=== PATIENT | female | born 1965 | race Caucasian/White ===

== ENCOUNTER 2016-08-19 21:25 | Emergency (ER) | payer BC, OTHER ==
[~2016-08-19] VITALS: Ht 152.4 cm; Wt 59.1 kg
[~2016-08-19 21:25] MED LIST: AMOXICILLIN 50500 MG; ATARAX 10MG10 MG/TAB; ATARAX 10MG10 MG/TAB PO; CEPHALEXIN250 MG/5 M PO; CEPHALEXIN500 M1 PO; ISOPTIN SR120 MG PO; NEXIUM 40MG40 MG PO; NORCO 325 MG-51 TAB PO; PREMARIN .3MG0.3 MG PO; PREMARIN 0.60.625 M1 PO; PREVACID30 MG PO; PROTONIX 40MG T40 MG PO; TOPROL XL 25MG25 MG PO; VERAPAMIL; VERAPAMIL120 MG/TA1 PO; VERAPAMIL180 MG/TAB PO; ZOLOFT 25MG25 MG
[2016-08-19 21:26] VITALS: TEMP 98.1
[2016-08-19] MEDS ORDERED: ZOLOFT 50MG50 MG PO (21:38)
[2016-08-19 21:54] LABS: BASO % 0.6 % (0.0-2.0); EOS % 0.6 % (0-4.0); GRAN # 4.8 (1.4-6.5); GRAN % 69.4 % (42.2-75.2); HEMATOCRIT 38.8 % (37.0-47.0); HEMOGLOBIN 12.9 g/dl (12.5-16.0); LYMPH # 1.8 (1.2-3.4); LYMPH % 25.1 % (20.0-51.0); MEAN CELL VOLUME 90 fl (80.0-100.0); MEAN CORPUSCULAR HEMOGLOBIN 30 pg (27.0-31.0); MEAN CORPUSCULAR HGB CONC 33 g/dl (33.0-37.0); MEAN PLATELET VOLUME 9.8 fl (7.4-10.4); MONO # 0.3 (0.1-0.6); PLATELET COUNT 277 K/mm3 (130-400); RED BLOOD COUNT 4.33 M/mm3 (4.10-5.30); REDCELL DISTRIBUTION WIDTH-CV 13.2 % (11.5-14.5)
[2016-08-19 21:58] LABS: PROTHROMBIN TIME 11.4 SECONDS (9.7-12.8)
[2016-08-19 22:01] LABS: PARTIAL THROMBOPLASTIN TIME 30.2 SECONDS (26.0-37.0)
[2016-08-19 22:06] LABS: ADJUSTED CALCIUM 9.4 mg/dL (8.4-10.2); ALANINE AMINOTRANSFERASE 31 U/L (9-52); ALBUMIN 4.5 gm/dL (3.5-5.0); ALKALINE PHOSPHATASE 63 U/L (50-136); ANION GAP 13 mmol/L (7-16); BILIRUBIN,TOTAL 0.5 mg/dL (0.0-1.0); BLOOD UREA NITROGEN 16 mg/dL (7-17); CALCIUM 9.8 mg/dL (8.4-10.2); CARBON DIOXIDE 29 mmol/L (22-30); CHLORIDE 100 mmol/L (98-107); CREATININE, serum 0.72 mg/dL (0.52-1.25); GLUCOSE 102 mg/dL (74-106); POTASSIUM 4.1 mmol/L (3.4-5.0); SODIUM 142 mmol/L (137-145)
[2016-08-19 22:35] LABS: TROPONIN-I < 0.012 ng/mL (0.000-0.034)
[2016-08-19 22:51] VITALS: BP 125/72; PULSE 70
== END 2016-08-19 22:53 | disposition home or self-care (01) ==
LOC: COL.ER 21:25
PROVIDERS: Family Medicine
DX: R07.9 Chest pain, unspecified (principal)

== ENCOUNTER → 2020-05-10 | Outpatient (CLI) | payer SELFPAY ==
[~2020-05-10] MED LIST changes: +LIPITOR 10MG10 MG PO; +ZOLOFT 50MG50 MG PO
== END ==
LOC: ZCOL.LAB 21:10
DX: U07.1 COVID-19 (principal)

== ENCOUNTER 2020-07-07 02:54 | Emergency (ER) | payer SELFPAY ==
[~2020-07-07] VITALS: Ht 152.4 cm; Wt 72.7 kg
[2020-07-07 03:32] LABS: BASO % 0.6 % (0.0-2.0); EOS # 0.1 (0.0-0.7); EOS % 1.3 % (0-4.0); GRAN # 4.2 (1.4-6.5); GRAN % 60.4 % (42.2-75.2); HEMATOCRIT 39.1 % (37.0-47.0); HEMOGLOBIN 12.9 g/dl (12.5-16.0); LYMPH # 2.2 (1.2-3.4); LYMPH % 32.1 % (20.0-51.0); MEAN CELL VOLUME 87 fl (80.0-100.0); MEAN CORPUSCULAR HEMOGLOBIN 29 pg (27.0-31.0); MEAN CORPUSCULAR HGB CONC 33 g/dl (33.0-37.0); MEAN PLATELET VOLUME 10.2 fl (7.4-10.4); MONO # 0.4 (0.1-0.6); MONO % 5.5 % (1.7-9.3); PLATELET COUNT 273 K/mm3 (130-400); RED BLOOD COUNT 4.48 M/mm3 (4.10-5.30); REDCELL DISTRIBUTION WIDTH-CV 13.7 % (11.5-14.5)
[2020-07-07 03:37] LABS: ALBUMIN 4.4 gm/dL (3.5-5.0); BILIRUBIN,TOTAL 0.5 mg/dL (0.0-1.0); CALCIUM 9.8 mg/dL (8.4-10.2); CREATININE, serum 0.82 (0.52-1.25); MAGNESIUM 1.9 mg/dL (1.6-2.3); POTASSIUM 4.2 mmol/L (3.4-5.0); TOTAL PROTEIN 7.5 gm/dL (6.4-8.2)
[2020-07-07 04:07] LABS: THYROID STIMULATING HORMONE 4.56 uIU/mL (0.465-4.680)
[2020-07-07 04:30] VITALS: BP 125/64; PULSE 74
== END 2020-07-07 04:30 | disposition home or self-care (01) ==
LOC: COL.ER 02:54
PROVIDERS: Emergency Medicine
DX: R00.2 Palpitations (principal); F41.9 Anxiety disorder, unspecified; Z90.710 Acquired absence of both cervix and uterus; Z90.49 Acquired absence of other specified parts of digestive tract

== ENCOUNTER 2020-08-17 06:06 | Emergency (ER) | payer SELFPAY ==
[~2020-08-17] VITALS: Ht 152.4 cm; Wt 72.7 kg
[2020-08-17 06:09] VITALS: TEMP 97.4
[2020-08-17 06:43] LABS: BASO % 0.5 % (0.0-2.0); EOS # 0.1 (0.0-0.7); EOS % 1.4 % (0-4.0); GRAN # 3.9 (1.4-6.5); GRAN % 60.5 % (42.2-75.2); HEMATOCRIT 36.7 % (37.0-47.0); HEMOGLOBIN 12.2 g/dl (12.5-16.0); MEAN CELL VOLUME 88 fl (80.0-100.0); MEAN CORPUSCULAR HEMOGLOBIN 29 pg (27.0-31.0); MEAN CORPUSCULAR HGB CONC 33 g/dl (33.0-37.0); MEAN PLATELET VOLUME 10.1 fl (7.4-10.4); MONO # 0.4 (0.1-0.6); MONO % 6.4 % (1.7-9.3); PLATELET COUNT 273 K/mm3 (130-400); RED BLOOD COUNT 4.16 M/mm3 (4.10-5.30); REDCELL DISTRIBUTION WIDTH-CV 13.7 % (11.5-14.5)
[2020-08-17 06:53] LABS: ALANINE AMINOTRANSFERASE 45 U/L (4-34); ALBUMIN 4.1 gm/dL (3.5-5.0); ALKALINE PHOSPHATASE 92 U/L (50-136); ANION GAP 11 mmol/L (7-16); AST,SGOT 47 U/L (15-37); BILIRUBIN,TOTAL 0.4 mg/dL (0.0-1.0); BLOOD UREA NITROGEN 21 mg/dL (7-17); CALCIUM 9.2 mg/dL (8.4-10.2); CARBON DIOXIDE 24 mmol/L (22-30); CHLORIDE 105 mmol/L (98-107); CREATININE, serum 0.75 (0.52-1.25); GLUCOSE 113 mg/dL (74-106); POTASSIUM 3.8 mmol/L (3.4-5.0); SODIUM 140 mmol/L (137-145); TOTAL PROTEIN 7.1 gm/dL (6.4-8.2)
[2020-08-17 07:07] LABS: TROPONIN-I < 0.012 ng/mL (0.000-0.035)
[2020-08-17 08:20] VITALS: BP 115/64; PULSE 70
== END 2020-08-17 08:25 | disposition home or self-care (01) ==
LOC: COL.ER 06:06
PROVIDERS: Emergency Medicine
DX: R07.89 Other chest pain (principal); I10 Essential (primary) hypertension; E78.5 Hyperlipidemia, unspecified

== ENCOUNTER 2020-12-26 01:48 | Emergency (ER) | payer OTHER ==
[~2020-12-26] VITALS: Ht 152.4 cm; Wt 75.0 kg
[2020-12-26 01:53] VITALS: TEMP 98
[2020-12-26 02:21] LABS: BASO % 0.5 % (0.0-2.0); EOS # 0.1 (0.0-0.7); EOS % 1.3 % (0-4.0); GRAN # 4.7 (1.4-6.5); GRAN % 61.3 % (42.2-75.2); HEMATOCRIT 37.7 % (37.0-47.0); HEMOGLOBIN 12.4 g/dl (12.5-16.0); LYMPH # 2.3 (1.2-3.4); LYMPH % 30.2 % (20.0-51.0); MEAN CELL VOLUME 88 fl (80.0-100.0); MEAN CORPUSCULAR HEMOGLOBIN 29 pg (27.0-31.0); MEAN CORPUSCULAR HGB CONC 33 g/dl (33.0-37.0); MEAN PLATELET VOLUME 9.8 fl (7.4-10.4); MONO # 0.5 (0.1-0.6); MONO % 6.4 % (1.7-9.3); PLATELET COUNT 267 K/mm3 (130-400); RED BLOOD COUNT 4.27 M/mm3 (4.10-5.30); REDCELL DISTRIBUTION WIDTH-CV 13.2 % (11.5-14.5)
[2020-12-26 02:31] LABS: ALANINE AMINOTRANSFERASE 30 U/L (4-34); ALKALINE PHOSPHATASE 82 U/L (50-136); ANION GAP 6 mmol/L (7-16); AST,SGOT 36 U/L (15-37); BILIRUBIN,TOTAL 0.4 mg/dL (0.0-1.0); BLOOD UREA NITROGEN 15 mg/dL (7-17); CALCIUM 9.1 mg/dL (8.4-10.2); CARBON DIOXIDE 26 mmol/L (22-30); CHLORIDE 106 mmol/L (98-107); CREATINE KINASE 100 U/L (30-135); CREATININE, serum 0.79 (0.52-1.25); GLUCOSE 101 mg/dL (74-106); INR 1.1 (0.8-3.0); PARTIAL THROMBOPLASTIN TIME 28.1 SECONDS (26.0-37.0); POTASSIUM 4.2 mmol/L (3.4-5.0); PROTHROMBIN TIME 11.8 SECONDS (9.7-12.8); SODIUM 138 mmol/L (137-145); TOTAL PROTEIN 7.1 gm/dL (6.4-8.2)
[2020-12-26 02:50] LABS: TROPONIN-I < 0.012 ng/mL (0.000-0.035)
[2020-12-26 03:44] VITALS: BP 142/52; PULSE 80
== END 2020-12-26 03:58 | disposition home or self-care (01) ==
LOC: COL.ER 01:48
PROVIDERS: Emergency Medicine
DX: R00.2 Palpitations (principal); I10 Essential (primary) hypertension; Z79.899 Other long term (current) drug therapy

== ENCOUNTER 2021-02-20 02:25 | Emergency (ER) | payer OTHER ==
[~2021-02-20] VITALS: Ht 152.4 cm; Wt 73.6 kg
[2021-02-20 02:26] VITALS: TEMP 98
[2021-02-20 03:14] LABS: BASO % 0.4 % (0.0-2.0); EOS # 0.1 (0.0-0.7); EOS % 1.6 % (0-4.0); GRAN # 4.2 (1.4-6.5); GRAN % 61.7 % (42.2-75.2); HEMATOCRIT 38.1 % (37.0-47.0); HEMOGLOBIN 12.4 g/dl (12.5-16.0); LYMPH # 2.1 (1.2-3.4); LYMPH % 31.2 % (20.0-51.0); MEAN CELL VOLUME 90 fl (80.0-100.0); MEAN CORPUSCULAR HEMOGLOBIN 29 pg (27.0-31.0); MEAN CORPUSCULAR HGB CONC 33 g/dl (33.0-37.0); MEAN PLATELET VOLUME 9.8 fl (7.4-10.4); MONO # 0.3 (0.1-0.6); PLATELET COUNT 270 K/mm3 (130-400); RED BLOOD COUNT 4.24 M/mm3 (4.10-5.30); REDCELL DISTRIBUTION WIDTH-CV 13.2 % (11.5-14.5)
[2021-02-20 03:27] LABS: ANION GAP 8 mmol/L (7-16); BLOOD UREA NITROGEN 13 mg/dL (7-17); CALCIUM 8.8 mg/dL (8.4-10.2); CARBON DIOXIDE 26 mmol/L (22-30); CHLORIDE 105 mmol/L (98-107); CREATININE, serum 0.81 (0.52-1.25); GLUCOSE 112 mg/dL (74-106); POTASSIUM 3.7 mmol/L (3.4-5.0); SODIUM 138 mmol/L (137-145)
[2021-02-20 03:40] LABS: TROPONIN-I < 0.012 ng/mL (0.000-0.035)
[2021-02-20 04:00] VITALS: BP 126/75; PULSE 68
== END 2021-02-20 04:00 | disposition home or self-care (01) ==
LOC: COL.ER 02:25
PROVIDERS: Emergency Medicine
DX: R06.02 Shortness of breath (principal); R79.1 Abnormal coagulation profile; F41.9 Anxiety disorder, unspecified; Z20.822 Contact with and (suspected) exposure to COVID-19; Z79.899 Other long term (current) drug therapy

== ENCOUNTER 2022-08-17 21:46 | Emergency (ER) | payer OTHER ==
[~2022-08-17] VITALS: Ht 152.4 cm; Wt 71.8 kg
[2022-08-17 21:47] VITALS: TEMP 98.4
[2022-08-17] MEDS ORDERED: XANAX .25M0.25 MG/TA PO (21:53)
[2022-08-17] MEDS ORDERED: CARAFATE 1GM1 G PO (21:56)
[2022-08-17 23:20] VITALS: BP 110/61; PULSE 80
== END 2022-08-17 23:24 | disposition home or self-care (01) ==
LOC: COL.ER 21:46
DX: K21.9 Gastro-esophageal reflux disease without esophagitis (principal); F41.9 Anxiety disorder, unspecified; R00.2 Palpitations; Z91.14 Patient's other noncompliance with medication regimen

== ENCOUNTER 2022-09-07 07:13 | Emergency (ER) | payer OTHER ==
[~2022-09-07] VITALS: Ht 165.1 cm; Wt 70.5 kg
[~2022-09-07 07:13] MED LIST changes: +CARAFATE 1GM1 G PO; +XANAX .25M0.25 MG/TA PO
[2022-09-07 07:14] VITALS: TEMP 98.2
[2022-09-07 07:36] LABS: BASO % 0.4 % (0.0-2.0); EOS % 0.4 % (0.0-4.0); GRAN # 7.3 K/mm3 (1.4-6.5); GRAN % 66.5 % (42.2-75.2); HEMATOCRIT 43.1 % (37.0-47.0); HEMOGLOBIN 14.7 g/dl (12.5-16.0); LYMPH % 27.8 % (20.0-51.0); MEAN CELL VOLUME 87 fl (80.0-100.0); MEAN CORPUSCULAR HEMOGLOBIN 30 pg (27-31); MEAN CORPUSCULAR HGB CONC 34 g/dl (33.0-37.0); MEAN PLATELET VOLUME 10.3 fl (7.4-10.4); MONO # 0.5 K/mm3 (0.1-0.6); MONO % 4.6 % (1.7-9.3); PLATELET COUNT 315 K/mm3 (130-400); RED BLOOD COUNT 4.97 M/mm3 (4.10-5.30); REDCELL DISTRIBUTION WIDTH-CV 12.7 % (11.5-14.5)
[2022-09-07] MEDS ORDERED: EFFEXOR 3737.5 MG/TA PO (07:46)
[2022-09-07 07:59] LABS: ALANINE AMINOTRANSFERASE 70 U/L (0-55); ALBUMIN 4.4 gm/dL (3.5-5.0); ALKALINE PHOSPHATASE 98 U/L (40-150); ANION GAP 16 mmol/L (7-16); AST,SGOT 42 U/L (5-34); BILIRUBIN,TOTAL 0.8 mg/dL (0.2-1.2); BLOOD UREA NITROGEN 13 mg/dL (10-20); CALCIUM 10.2 mg/dL (8.4-10.2); CARBON DIOXIDE 22 mmol/L (22-29); CHLORIDE 103 mmol/L (98-107); CREATININE, serum 0.96 mg/dL (0.57-1.11); GLUCOSE 115 mg/dL (70-99); MAGNESIUM 2.2 mg/dL (1.6-2.6); POTASSIUM 3.6 mmol/L (3.5-4.5); SODIUM 141 mmol/L (136-145)
[2022-09-07 08:20] LABS: TROPONIN-I < 0.010 ng/mL (0.00-0.033); TSH w REFLEX 1.392 uIU/mL (0.350-4.940)
[2022-09-07 09:05] VITALS: BP 144/74; PULSE 75
[2022-09-08] MEDS ORDERED: CARAFATE S1 GM/10 ML PO (05:27)
== END 2022-09-07 09:05 | disposition home or self-care (01) ==
LOC: COL.ER 07:13
PROVIDERS: Emergency Medicine
DX: E86.0 Dehydration (principal); F41.9 Anxiety disorder, unspecified; I47.9 Paroxysmal tachycardia, unspecified; R73.9 Hyperglycemia, unspecified; R74.01 Elevation of levels of liver transaminase levels; Z86.16 Personal history of COVID-19; Z90.49 Acquired absence of other specified parts of digestive tract
CPT/HCPCS: J7030

== ENCOUNTER 2022-09-08 02:07 | Emergency (ER) | payer OTHER ==
[~2022-09-08] VITALS: Ht 152.4 cm; Wt 70.5 kg
[~2022-09-08 02:07] MED LIST changes: +EFFEXOR 3737.5 MG/TA PO
[2022-09-08 02:08] VITALS: TEMP 97.9
[2022-09-08 03:17] LABS: BASO % 0.6 % (0.0-2.0); EOS % 0.6 % (0.0-4.0); GRAN # 4.8 K/mm3 (1.4-6.5); GRAN % 65.7 % (42.2-75.2); HEMATOCRIT 40.1 % (37.0-47.0); HEMOGLOBIN 13.2 g/dl (12.5-16.0); LYMPH # 2.1 K/mm3 (1.2-3.4); LYMPH % 28.4 % (20.0-51.0); MEAN CELL VOLUME 91 fl (80.0-100.0); MEAN CORPUSCULAR HEMOGLOBIN 30 pg (27-31); MEAN CORPUSCULAR HGB CONC 33 g/dl (33.0-37.0); MEAN PLATELET VOLUME 10.1 fl (7.4-10.4); MONO # 0.3 K/mm3 (0.1-0.6); MONO % 4.4 % (1.7-9.3); PLATELET COUNT 279 K/mm3 (130-400); RED BLOOD COUNT 4.43 M/mm3 (4.10-5.30); REDCELL DISTRIBUTION WIDTH-CV 12.8 % (11.5-14.5)
[2022-09-08 03:34] LABS: ALANINE AMINOTRANSFERASE 57 U/L (0-55); ALKALINE PHOSPHATASE 83 U/L (40-150); ANION GAP 13 mmol/L (7-16); AST,SGOT 31 U/L (5-34); BILIRUBIN,TOTAL 0.6 mg/dL (0.2-1.2); BLOOD UREA NITROGEN 11 mg/dL (10-20); CALCIUM 9.6 mg/dL (8.4-10.2); CARBON DIOXIDE 23 mmol/L (22-29); CHLORIDE 105 mmol/L (98-107); CREATININE, serum 0.87 mg/dL (0.57-1.11); GLUCOSE 113 mg/dL (70-99); LIPASE 37 U/L (8-78); SODIUM 141 mmol/L (136-145); TOTAL PROTEIN 7.2 gm/dL (6.2-8.1)
[2022-09-08 03:53] LABS: TSH w REFLEX 3.752 uIU/mL (0.350-4.940)
[2022-09-08 03:57] LABS: TROPONIN-I < 0.010 ng/mL (0.00-0.033)
[2022-09-08] MEDS ORDERED: CARAFATE S1 GM/10 ML PO (05:27)
[2022-09-08 05:42] VITALS: BP 119/63; PULSE 78
== END 2022-09-08 05:43 | disposition home or self-care (01) ==
LOC: COL.ER 02:07
PROVIDERS: Emergency Medicine
DX: R00.2 Palpitations (principal); K21.00 Gastro-esophageal reflux disease with esophagitis, without bleeding; Z90.49 Acquired absence of other specified parts of digestive tract; Z86.16 Personal history of COVID-19; Z28.310 Unvaccinated for COVID-19

== ENCOUNTER 2022-09-08 19:56 | Emergency (ER) | payer OTHER ==
[~2022-09-08] VITALS: Ht 152.4 cm; Wt 70.5 kg
[2022-09-08 19:56] VITALS: TEMP 97.9
[~2022-09-08 19:56] MED LIST changes: +CARAFATE S1 GM/10 ML PO
[2022-09-08 20:38] LABS: BASO % 0.5 % (0.0-2.0); EOS % 0.4 % (0.0-4.0); GRAN # 5.4 K/mm3 (1.4-6.5); GRAN % 70.9 % (42.2-75.2); HEMATOCRIT 41.7 % (37.0-47.0); HEMOGLOBIN 13.8 g/dl (12.5-16.0); LYMPH # 1.8 K/mm3 (1.2-3.4); LYMPH % 23.9 % (20.0-51.0); MEAN CELL VOLUME 89 fl (80.0-100.0); MEAN CORPUSCULAR HEMOGLOBIN 30 pg (27-31); MEAN CORPUSCULAR HGB CONC 33 g/dl (33.0-37.0); MEAN PLATELET VOLUME 10.4 fl (7.4-10.4); MONO # 0.3 K/mm3 (0.1-0.6); MONO % 3.8 % (1.7-9.3); PLATELET COUNT 285 K/mm3 (130-400); RED BLOOD COUNT 4.67 M/mm3 (4.10-5.30); REDCELL DISTRIBUTION WIDTH-CV 12.9 % (11.5-14.5)
[2022-09-08 21:14] LABS: ALBUMIN 4.2 gm/dL (3.5-5.0); BILIRUBIN,TOTAL 0.6 mg/dL (0.2-1.2); CALCIUM 9.8 mg/dL (8.4-10.2); CREATININE, serum 0.93 mg/dL (0.57-1.11); POTASSIUM 3.8 mmol/L (3.5-4.5); TOTAL PROTEIN 7.6 gm/dL (6.2-8.1)
[2022-09-08 21:50] VITALS: BP 131/71; PULSE 83
== END 2022-09-08 21:50 | disposition home or self-care (01) ==
LOC: COL.ER 19:56
PROVIDERS: Physician Assistant
DX: K21.9 Gastro-esophageal reflux disease without esophagitis (principal); F41.9 Anxiety disorder, unspecified; E78.5 Hyperlipidemia, unspecified; Z79.899 Other long term (current) drug therapy; Z86.16 Personal history of COVID-19; Z90.49 Acquired absence of other specified parts of digestive tract

== ENCOUNTER 2024-04-18 01:46 | Emergency (ER) | payer BC ==
[~2024-04-18] VITALS: Ht 154.9 cm; Wt 68.2 kg
[2024-04-18 01:47] VITALS: TEMP 97.9
[2024-04-18 02:23] VITALS: BP 133/69; PULSE 87
== END 2024-04-18 02:23 | disposition left against medical advice (07) ==
LOC: COL.ER 01:46
DX: R07.9 Chest pain, unspecified (principal)

== ENCOUNTER 2024-04-18 07:04 | Emergency (ER) | payer BC ==
[~2024-04-18] VITALS: Ht 152.4 cm; Wt 68.2 kg
[2024-04-18 07:04] VITALS: TEMP 98.1
[2024-04-18 07:41] LABS: COLLECTION METHOD CLEAN CATCH
[2024-04-18 07:48] LABS: BASO % 0.6 % (0.0-2.0); EOS # 0.1 K/mm3 (0.0-0.7); EOS % 0.8 % (0.0-4.0); GRAN # 4.4 K/mm3 (1.4-6.5); GRAN % 66.5 % (42.2-75.2); HEMATOCRIT 39.5 % (37.0-47.0); HEMOGLOBIN 13.7 g/dl (12.5-16.0); LYMPH # 1.8 K/mm3 (1.2-3.4); LYMPH % 26.9 % (20.0-51.0); MEAN CELL VOLUME 89 fl (80.0-100.0); MEAN CORPUSCULAR HEMOGLOBIN 31 pg (27-31); MEAN CORPUSCULAR HGB CONC 35 g/dl (33.0-37.0); MONO # 0.3 K/mm3 (0.1-0.6); PLATELET COUNT 248 K/mm3 (130-400); RED BLOOD COUNT 4.45 M/mm3 (4.10-5.30); REDCELL DISTRIBUTION WIDTH-CV 12.9 % (11.5-14.5)
[2024-04-18 07:49] LABS: URINE APPEARANCE CLEAR (CLEAR/HAZY); URINE BLOOD NEGATIVE (NEGATIVE); URINE COLOR YELLOW (YELLOW); URINE GLUCOSE NEGATIVE (NEGATIVE); URINE KETONE NEGATIVE (NEGATIVE); URINE NITRATE NEGATIVE (NEGATIVE); URINE PROTEIN(semi-quant) NEGATIVE (NEGATIVE); URINE UROBILINOGEN 0.2 E.U/dL (0.2-1.0)
[2024-04-18 08:06] LABS: ALANINE AMINOTRANSFERASE 52 U/L (0-55); ALKALINE PHOSPHATASE 72 U/L (40-150); ANION GAP 12 mmol/L (7-16); AST,SGOT 36 U/L (5-34); BILIRUBIN,TOTAL 0.6 mg/dL (0.2-1.2); BLOOD UREA NITROGEN 13 mg/dL (10-20); CHLORIDE 107 mEq/L (98-107); CREATININE, serum 0.83 mg/dL (0.57-1.11); GLUCOSE 92 mg/dL (70-99); POTASSIUM 3.8 mEq/L (3.5-4.5); SODIUM 142 mEq/L (136-145); TOTAL PROTEIN 7.2 g/dl (6.2-8.1)
[2024-04-18 08:12] LABS: TROPONIN-I < 0.010 ng/mL (0.00-0.033)
[2024-04-18 08:25] VITALS: BP 107/56; PULSE 65
== END 2024-04-18 08:34 | disposition home or self-care (01) ==
LOC: COL.ER 07:04
PROVIDERS: Personal Emergency Response Attendant
DX: R06.02 Shortness of breath (principal)